=== PATIENT | female | born 1950 | race African-American/Black ===

== ENCOUNTER 2016-11-27 02:29 | Emergency (ER) | payer OTHER ==
[~2016-11-27] VITALS: Ht 162.6 cm; Wt 68.2 kg
[~2016-11-27 02:29] MED LIST: ALBU18HF2 IH; ALBU4TAB6 PO; FLUT1DIS INH; TIOT18CA3 INH
[2016-11-27 02:59] VITALS: BP 149/95
[2016-11-27] MEDS ORDERED: LORAZEPAM 0.5MG TABLET PO STA (03:17)
[2016-11-27] MEDS ORDERED: ALBUTEROL (0.083%) 2.5MG/3ML NEB HHN STA (03:17)
== END 2016-11-27 05:10 | disposition home or self-care (01) ==
LOC: ER 02:29
DX: J44.1 Chronic obstructive pulmonary disease with (acute) exacerbation (principal); F41.9 Anxiety disorder, unspecified; I10 Essential (primary) hypertension; Z88.8 Allergy status to other drugs, medicaments and biological substances; Z91.048 Other nonmedicinal substance allergy status
CPT/HCPCS: 99283; J7611; Z7610

== ENCOUNTER 2017-01-14 13:50 | Emergency (ER) | payer OTHER ==
[~2017-01-14] VITALS: Ht 160 cm; Wt 52.0 kg
[2017-01-14] MEDS ORDERED: DIPHENHYDRAMINE 25MG CAPSULE PO ONE (15:15)
[2017-01-14] MEDS ORDERED: METOCLOPRAMIDE HCL 5MG TABLET PO ONE (15:15)
[2017-01-14 15:37] LABS: BASOPHILS % 0.4 % (0.0-2.0); CHLORIDE 108 mEq/L (98-107); EOSINOPHILS % 0.7 % (0.0-5.0); HEMATOCRIT. 37.6 % (36.0-48.0); HEMOGLOBIN. 12.7 g/dL (12.0-16.0); LYMPHOCYTES % 30.4 % (20.0-50.0); MEAN CORPUSCULAR HEMOGLOBIN 31.3 pg (28.0-32.0); MEAN CORPUSCULAR VOLUME 92.4 fL (81.0-99.0); MEAN PLATELET VOLUME 8.1 fl (7.4-10.4); MONOCYTES % 7.4 % (2.0-8.0); NEUTROPHILS % 61.1 % (40.0-76.0); PLATELET 208 x1000/uL (130-400); RED BLOOD CELL COUNT 4.07 mill/uL (4.2-5.4); RED CELL DISTRIBUTION WIDTH 13.5 % (11.6-14.6)
[2017-01-14 15:42] LABS: CARBON DIOXIDE 27 mEq/L (21-32)
[2017-01-14] MEDS ORDERED: TETRACAINE 0.5% OPHTH DROPS 4ML BOTHEYE ONE (15:45)
[2017-01-14] MEDS ORDERED: FLUORESCEIN SODIUM 1MG/STRIP LEFTEYE ONE (16:15)
[2017-01-14 18:36] VITALS: BP 142/68
== END 2017-01-14 18:38 | disposition home or self-care (01) ==
LOC: ER 13:50
DX: R51 Headache (principal); Z98.42 Cataract extraction status, left eye; I10 Essential (primary) hypertension; J44.9 Chronic obstructive pulmonary disease, unspecified; Z88.3 Allergy status to other anti-infective agents; Z91.041 Radiographic dye allergy status
CPT/HCPCS: 36415; 70450; 80048; 85025; 99285; J8597; Q0163

== ENCOUNTER 2017-01-18 17:03 | Emergency (ER) | payer MEDICAID, OTHER ==
[~2017-01-18] VITALS: Ht 160 cm; Wt 52.0 kg
[2017-01-18] MEDS ORDERED: ASPI-1159 PO (17:15)
[2017-01-18] MEDS ORDERED: AMLO10TA80 PO (17:15)
[2017-01-18] MEDS ORDERED: ACETAMINOPHEN 325MG TABLET PO ONE (18:45)
[2017-01-18 19:33] VITALS: BP 146/79
== END 2017-01-18 20:05 | disposition home or self-care (01) ==
LOC: ER 17:03
DX: J44.1 Chronic obstructive pulmonary disease with (acute) exacerbation (principal); I10 Essential (primary) hypertension; H40.9 Unspecified glaucoma; Z87.891 Personal history of nicotine dependence; Z79.82 Long term (current) use of aspirin; Z88.1 Allergy status to other antibiotic agents; Z88.8 Allergy status to other drugs, medicaments and biological substances
CPT/HCPCS: 99284

== ENCOUNTER 2019-03-10 20:59 | Inpatient (IN) | payer MEDICAID, OTHER ==
[~2019-03-10] VITALS: Ht 162.6 cm; Wt 56.7 kg
[~2019-03-10 20:59] MED LIST changes: +AMLO10TA80 PO; +ASPI-1393 PO
[2019-03-10] MEDS ORDERED: PREDNISONE 20MG TABLET PO STA (21:07)
[2019-03-10] MEDS ORDERED: ALBUTEROL (0.083%) 2.5MG/3ML NEB HHN STA (21:07)
[2019-03-10] MEDS ORDERED: IPRATROPIUM BROMIDE (0.02%) 0.5MG/2.5ML NEB HHN STA (21:07)
[2019-03-10] MEDS ORDERED: ONDANSETRON HCL 4MG/2ML INJ IV STA (21:07)
[2019-03-10] MEDS ORDERED: CLONIDINE 0.2MG TABLET PO ONE (21:45)
[2019-03-10 21:57] LABS: BASOPHILS % 0.3 % (0.0-2.0); EOSINOPHILS % 1.3 % (0.0-5.0); HEMATOCRIT. 41.3 % (36.0-48.0); HEMOGLOBIN. 13.9 g/dL (12.0-16.0); LYMPHOCYTES % 18.7 % (20.0-50.0); MEAN CORPUSCULAR HEMOGLOBIN 31.5 pg (28.0-32.0); MEAN CORPUSCULAR VOLUME 93.4 fL (81.0-99.0); MEAN PLATELET VOLUME 8.7 fl (7.4-10.4); MONOCYTES % 7.9 % (2.0-8.0); NEUTROPHILS % 71.8 % (40.0-76.0); PLATELET 225 x1000/uL (130-400); RED BLOOD CELL COUNT 4.42 mill/uL (4.2-5.4)
[2019-03-10 21:59] LABS: CHLORIDE 110 mEq/L (98-107)
[2019-03-10] MEDS ORDERED: CEFTRIAXONE 1 G PREMIX 50 ML IV ONE (23:00)
[2019-03-10] MEDS ORDERED: SODIUM CHLORIDE 0.9% 1000ML BAG (SEPSIS BOLUS) IV ONE (23:00)
[2019-03-11 03:28] VITALS: BP 126/60
[2019-03-11] MEDS ORDERED: IPRATROPIUM/ALBUTEROL 0.5-3(2.5)MG/3ML NEB HHN PRN (04:30)
[2019-03-11] MEDS ORDERED: CEFTRIAXONE 1 G PREMIX 50 ML IV SCH (06:00)
[2019-03-11] MEDS: METHYLPREDNISOLONE SOD SUCC 40 MG/ML VIAL IV SCH ×2 (06:12→14:37)
[2019-03-11 06:31] VITALS: BP 126/60
[2019-03-11 06:59] VITALS: BP 126/60
[2019-03-11] MEDS: IPRATROPIUM/ALBUTEROL 0.5-3(2.5)MG/3ML NEB HHN SCH ×3 (08:17→16:46)
[2019-03-11] MEDS ORDERED: AZITHROMYCIN 250 MG TABLET PO SCH (09:00)
[2019-03-11 12:00] VITALS: BP 142/61
[2019-03-11 16:00] VITALS: BP 117/58
[2019-03-11 17:23] VITALS: BP 117/58
[2019-03-11] MEDS ORDERED: P20 MT (18:32)
[2019-03-11] MEDS ORDERED: AZIT250T12 MT (18:35)
== END 2019-03-11 18:40 | disposition home or self-care (01) | DRG 144 ==
LOC: ER 20:59 → EDBEDREQ 03-11 00:02 → EDBEDREQSVC 03-11 00:02 → EDBEDREQTM 03-11 00:02 → EDBEDREQSVC 03-11 00:25 → EDBEDREQ 03-11 00:25 → EDBEDREQDT 03-11 00:25 → ENRESERV 03-11 02:58 → 8WST 03-11 03:39
PROVIDERS: ADMIT Internal Medicine; ATTEND Internal Medicine
PROC: 5A09357 Assistance with Respiratory Ventilation, Less than 24 Consecutive Hours, Continuous Positive Airway Pressure (ICD-10-PCS; principal; 2019-03-11)
DX: J68.0 Bronchitis and pneumonitis due to chemicals, gases, fumes and vapors (principal); J96.00 Acute respiratory failure, unspecified whether with hypoxia or hypercapnia; E87.8 Other disorders of electrolyte and fluid balance, not elsewhere classified; I10 Essential (primary) hypertension; F14.90 Cocaine use, unspecified, uncomplicated; F17.210 Nicotine dependence, cigarettes, uncomplicated; Z88.2 Allergy status to sulfonamides; Z88.8 Allergy status to other drugs, medicaments and biological substances; Z88.6 Allergy status to analgesic agent; Z88.1 Allergy status to other antibiotic agents; Z91.041 Radiographic dye allergy status; Z79.899 Other long term (current) drug therapy; Z79.82 Long term (current) use of aspirin; Z71.6 Tobacco abuse counseling; Z71.51 Drug abuse counseling and surveillance of drug abuser
CPT/HCPCS: 36415; 71045; 83880; 84484; 93005; 94640; 94644; 94660; 99291; J0696; J2405; J2920; J7030; J7040; J7512; J7611; J7620

== ENCOUNTER 2019-04-29 12:52 | Emergency (ER) | payer OTHER ==
[~2019-04-29] VITALS: Ht 165.1 cm; Wt 50.0 kg
[~2019-04-29 12:52] MED LIST changes: +AZIT250T12 MT; +P20 MT
[2019-04-29] MEDS: IPRATROPIUM/ALBUTEROL 0.5-3(2.5)MG/3ML NEB HHN ONE (18:55)
[2019-04-29] MEDS: METHYLPREDNISOLONE SOD SUCC 125 MG/2 ML VIAL IV STA (18:56)
[2019-04-29] MEDS: PIPERACILLIN/TAZ 3.375G PREMIX 50 ML IV ONE (19:03)
[2019-04-29 19:09] LABS: BASOPHILS % 0.3 % (0.0-2.0); EOSINOPHILS % 0.9 % (0.0-5.0); HEMATOCRIT. 38.6 % (36.0-48.0); HEMOGLOBIN. 13.2 g/dL (12.0-16.0); LYMPHOCYTES % 30.3 % (20.0-50.0); MEAN CORPUSCULAR HEMOGLOBIN 31.8 pg (28.0-32.0); MEAN CORPUSCULAR VOLUME 93.2 fL (81.0-99.0); MEAN PLATELET VOLUME 8.1 fl (7.4-10.4); MONOCYTES % 8.1 % (2.0-8.0); NEUTROPHILS % 60.4 % (40.0-76.0); PLATELET 216 x1000/uL (130-400); RED BLOOD CELL COUNT 4.14 mill/uL (4.2-5.4); RED CELL DISTRIBUTION WIDTH 14.3 % (11.6-14.6)
[2019-04-29 19:10] LABS: *AMPHETAMINES SCREEN URINE NEGATIVE (NEGATIVE); *BARBITURATES SCREEN URINE NEGATIVE (NEGATIVE)
[2019-04-29 19:11] LABS: *BENZODIAZEPINES SCREEN URINE NEGATIVE (NEGATIVE); *COCAINE SCREEN URINE PRESUMTIVE POSITIVE (NEGATIVE); CANNABINOID URINE SCREEN PRESUMTIVE POSITIVE (NEGATIVE); METHADONE URINE SCREEN NEGATIVE (NEGATIVE); OPIATES URINE SCREEN PRESUMTIVE POSITIVE (NEGATIVE); PHENCYCLIDINE URINE SCREEN NEGATIVE (NEGATIVE)
[2019-04-29 19:12] LABS: BG BASE EXCESS 0.4 mmol/L (-2.0-2.0); BG CARBOXYHEMOGLOBIN 0.7 % (0.5-1.5); BG DEOXYHEMOGLOBIN 1.9 % (0.0-5.0); BG FRACTION INSPIRED OXYGEN 28; BG HCO3 ACT 25.9 mmol/L (22.0-26.0); BG METHEMOGLOBIN 0.3 % (0.0-1.5); BG OXYGEN SATURATION 98.1 % (92.0-98.5); BG OXYHEMOGLOBIN 97.1 % (94.0-97.0); BG PH 7.378 (7.350-7.450); BG PO2 126.8 mmHg (75.0-100.0); BG SAMPLE SITE RIGHT BRACHIAL; BG TOTAL HEMOGLOBIN 13.4 g/dL (12.0-18.0); BG VENT MODE NASAL CANNULA
[2019-04-29 19:15] LABS: CHLORIDE 111 mEq/L (98-107)
[2019-04-29 19:16] LABS: INR 0.9; PARTIAL THROMBOPLASTIN TIME 23.2 sec (23.4-31.0); PROTHROMBIN TIME 9.8 sec (9.6-11.0)
[2019-04-29 19:19] LABS: ETHANOL BLOOD < 10 mg/dL
[2019-04-29] MEDS: MAGNESIUM 2 G PREMIX 50 ML IV ONE (19:44)
[2019-04-30 00:43] VITALS: BP 104/61
== END 2019-04-30 01:27 | disposition short-term general hospital (02) ==
LOC: ER 12:52 → CANBEDREQ 04-30 02:51
DX: J44.1 Chronic obstructive pulmonary disease with (acute) exacerbation (principal); R06.02 Shortness of breath; F14.10 Cocaine abuse, uncomplicated; R09.02 Hypoxemia; I10 Essential (primary) hypertension; Z87.891 Personal history of nicotine dependence; Z79.82 Long term (current) use of aspirin; Z79.899 Other long term (current) drug therapy; Z88.2 Allergy status to sulfonamides; Z88.9 Allergy status to unspecified drugs, medicaments and biological substances; Z88.1 Allergy status to other antibiotic agents; Z91.09 Other allergy status, other than to drugs and biological substances; Z79.51 Long term (current) use of inhaled steroids; Z91.041 Radiographic dye allergy status; Z88.6 Allergy status to analgesic agent
CPT/HCPCS: 36415; 36600; 71045; 80053; 80305; 80320; 82375; 82805; 83605; 83690; 83880; 84484; 85025; 85610; 85730; 87040; 87086; 93005; 94640; 96365; 96368; 96375; 99285; J2543; J2930; J3475; J7620; Z7610; G0480

== ENCOUNTER 2019-06-21 11:04 | Emergency (ER) | payer OTHER ==
[~2019-06-21] VITALS: Ht 160 cm; Wt 47.0 kg
[~2019-06-21 11:04] MED LIST changes: -ASPI-1393 PO; +ASPI-1497 PO
[2019-06-21] MEDS ORDERED: ALBUTEROL (0.083%) 2.5MG/3ML NEB HHN STA (11:25)
[2019-06-21] MEDS ORDERED: IPRATROPIUM BROMIDE (0.02%) 0.5MG/2.5ML NEB HHN STA (11:25)
[2019-06-21] MEDS ORDERED: PREDNISONE 20MG TABLET PO ONE (11:30)
[2019-06-21 12:23] LABS: BASOPHILS % 0.3 % (0.0-2.0); EOSINOPHILS % 0.7 % (0.0-5.0); HEMATOCRIT. 40.1 % (36.0-48.0); HEMOGLOBIN. 13.5 g/dL (12.0-16.0); LYMPHOCYTES % 11.4 % (20.0-50.0); MEAN CORPUSCULAR HEMOGLOBIN 32.1 pg (28.0-32.0); MEAN CORPUSCULAR VOLUME 95.4 fL (81.0-99.0); MEAN PLATELET VOLUME 8.2 fl (7.4-10.4); MONOCYTES % 6.2 % (2.0-8.0); NEUTROPHILS % 81.4 % (40.0-76.0); PLATELET 200 x1000/uL (130-400)
[2019-06-21 12:30] LABS: CHLORIDE 107 mEq/L (98-107)
[2019-06-21] MEDS ORDERED: ALBUTEROL (0.5%) 2.5MG/0.5ML NEB HHN ONE (12:34)
[2019-06-21 14:00] VITALS: BP 121/78
== END 2019-06-21 14:14 | disposition home or self-care (01) ==
LOC: ER 11:04
DX: R06.02 Shortness of breath (principal); I10 Essential (primary) hypertension
CPT/HCPCS: 36415; 71045; 80053; 83880; 84484; 85025; 93005; 94640; 99285; J7512; J7610

== ENCOUNTER 2020-06-24 10:16 | Emergency (ER) | payer OTHER ==
[~2020-06-24] VITALS: Ht 162.6 cm; Wt 55.0 kg
[2020-06-24] MEDS ORDERED: ALBUTEROL (0.083%) 2.5MG/3ML NEB HHN STA (10:40)
[2020-06-24] MEDS ORDERED: METHYLPREDNISOLONE SOD SUCC 125 MG/2 ML VIAL IV STA (10:40)
[2020-06-24] MEDS ORDERED: ALBUTEROL (0.083%) 2.5MG/3ML NEB HHN ONE (11:00)
[2020-06-24] MEDS ORDERED: ALBUTEROL (0.083%) 2.5MG/3ML NEB ONE (11:20)
[2020-06-24 11:31] LABS: BASOPHILS % 0.1 % (0.0-2.0); EOSINOPHILS % 0.9 % (0.0-5.0); HEMATOCRIT. 46.3 % (36.0-48.0); LYMPHOCYTES % 15.4 % (20.0-50.0); MEAN CORPUSCULAR VOLUME 92.8 fL (81.0-99.0); MEAN PLATELET VOLUME 8.1 fl (7.4-10.4); NEUTROPHILS % 76.6 % (40.0-76.0); PLATELET 189 x1000/uL (130-400); RED BLOOD CELL COUNT 4.99 mill/uL (4.2-5.4); RED CELL DISTRIBUTION WIDTH 14.4 % (11.6-14.6)
[2020-06-24 11:39] LABS: CHLORIDE 108 mEq/L (98-107)
[2020-06-24] MEDS ORDERED: DOXY50CA2 MT (13:18)
[2020-06-24] MEDS ORDERED: P20 MT (13:24)
[2020-06-24] MEDS ORDERED: DOXYCYCLINE HYCLATE 100MG CAPSULE PO ONE (13:30)
[2020-06-24 13:52] VITALS: BP 128/67
== END 2020-06-24 13:53 | disposition home or self-care (01) ==
LOC: ER 10:24
DX: J44.1 Chronic obstructive pulmonary disease with (acute) exacerbation (principal); I10 Essential (primary) hypertension; Z88.8 Allergy status to other drugs, medicaments and biological substances; Z88.2 Allergy status to sulfonamides; Z88.6 Allergy status to analgesic agent; Z79.899 Other long term (current) drug therapy; Z79.82 Long term (current) use of aspirin
CPT/HCPCS: 36415; 71045; 80048; 83880; 84484; 85025; 93005; 94640; 96374; 99285; J2930; Z7610

== ENCOUNTER 2020-07-01 10:27 | Emergency (ER) | payer MEDICAID, OTHER ==
[~2020-07-01] VITALS: Ht 175.3 cm; Wt 68.0 kg
[~2020-07-01 10:27] MED LIST changes: +DOXY50CA2 MT
[2020-07-01] MEDS ORDERED: ALBUTEROL (0.083%) 2.5MG/3ML NEB HHN STA (10:39)
[2020-07-01] MEDS ORDERED: IPRATROPIUM BROMIDE (0.02%) 0.5MG/2.5ML NEB HHN STA (10:39)
[2020-07-01] MEDS ORDERED: METHYLPREDNISOLONE SOD SUCC 125 MG/2 ML VIAL IV STA (10:39)
[2020-07-01 11:08] LABS: BASOPHILS % 0.2 % (0.0-2.0); CHLORIDE 112 mEq/L (98-107); EOSINOPHILS % 0.9 % (0.0-5.0); HEMATOCRIT. 42.7 % (36.0-48.0); LYMPHOCYTES % 9.5 % (20.0-50.0); MEAN CORPUSCULAR HEMOGLOBIN 30.5 pg (28.0-32.0); MEAN CORPUSCULAR VOLUME 92.8 fL (81.0-99.0); MEAN PLATELET VOLUME 7.6 fl (7.4-10.4); MONOCYTES % 5.7 % (2.0-8.0); NEUTROPHILS % 83.7 % (40.0-76.0); PLATELET 202 x1000/uL (130-400); RED BLOOD CELL COUNT 4.61 mill/uL (4.2-5.4); RED CELL DISTRIBUTION WIDTH 14.6 % (11.6-14.6)
[2020-07-01 11:37] LABS: BG BASE EXCESS -0.4 mmol/L (-2.0-2.0); BG CARBOXYHEMOGLOBIN 0.2 % (0.5-1.5); BG DEOXYHEMOGLOBIN 0.4 % (0.0-5.0); BG FRACTION INSPIRED OXYGEN 75; BG HCO3 ACT 25.5 mmol/L (22.0-26.0); BG OXYGEN SATURATION 99.6 % (92.0-98.5); BG OXYHEMOGLOBIN 98.4 % (94.0-97.0); BG PH 7.361 (7.350-7.450); BG PO2 387.5 mmHg (75.0-100.0); BG SAMPLE SITE LEFT RADIAL; BG TOTAL HEMOGLOBIN 14.4 g/dL (12.0-18.0); BG TOTAL RESPIRATORY RATE 25 b/min; BG VENT MODE MASK - BIPAP
[2020-07-01 14:43] VITALS: BP 126/67
== END 2020-07-01 14:59 | disposition left against medical advice (07) ==
LOC: ER 10:37 → CANBEDREQ 16:04
DX: J44.1 Chronic obstructive pulmonary disease with (acute) exacerbation (principal); R06.03 Acute respiratory distress; Z20.822 Contact with and (suspected) exposure to COVID-19; I10 Essential (primary) hypertension; I49.1 Atrial premature depolarization; Z79.899 Other long term (current) drug therapy; Z88.1 Allergy status to other antibiotic agents; Z88.3 Allergy status to other anti-infective agents; Z88.6 Allergy status to analgesic agent; Z88.8 Allergy status to other drugs, medicaments and biological substances; Z79.82 Long term (current) use of aspirin; Z79.51 Long term (current) use of inhaled steroids; Z79.52 Long term (current) use of systemic steroids
CPT/HCPCS: 36415; 36600; 71045; 80053; 82375; 82805; 83880; 84484; 85025; 93005; 94640; 94660; 96374; 99285; C9803; J2930; U0003; Z7610

== ENCOUNTER 2020-12-07 14:29 | Emergency (ER) | payer MEDICAID, OTHER ==
[~2020-12-07] VITALS: Ht 160 cm; Wt 59.0 kg
[2020-12-07] MEDS ORDERED: METHYLPREDNISOLONE SOD SUCC 125 MG/2 ML VIAL IV STA (15:03)
[2020-12-07] MEDS: ALBUTEROL (0.083%) 2.5MG/3ML NEB HHN SCH ×3 (15:30→16:30)
[2020-12-07 16:42] LABS: HEMATOCRIT. 35.9 % (36.0-48.0); HEMOGLOBIN. 12.6 g/dL (12.0-16.0); MEAN CORPUSCULAR HEMOGLOBIN 31.8 pg (28.0-32.0); MEAN CORPUSCULAR VOLUME 90.4 fL (81.0-99.0); MEAN PLATELET VOLUME 7.8 fl (7.4-10.4); PLATELET 265 x1000/uL (130-400); RED BLOOD CELL COUNT 3.97 mill/uL (4.2-5.4); RED CELL DISTRIBUTION WIDTH 14.7 % (11.6-14.6)
[2020-12-07 16:49] LABS: CHLORIDE 110 mEq/L (98-107)
[2020-12-07 17:21] LABS: PLATELET ESTIMATE NORMAL
[2020-12-07] MEDS ORDERED: P20 MT (18:13)
[2020-12-07] MEDS ORDERED: DOXY100C2 MT (18:13)
[2020-12-07] MEDS ORDERED: DOXYCYCLINE HYCLATE 100MG CAPSULE PO NR (18:15)
[2020-12-07 18:47] VITALS: BP 148/80
== END 2020-12-07 18:50 | disposition home or self-care (01) ==
LOC: ER 14:29
DX: J45.901 Unspecified asthma with (acute) exacerbation (principal); I10 Essential (primary) hypertension; H40.9 Unspecified glaucoma; Z79.899 Other long term (current) drug therapy; Z79.51 Long term (current) use of inhaled steroids; Z88.6 Allergy status to analgesic agent; Z88.1 Allergy status to other antibiotic agents; Z88.3 Allergy status to other anti-infective agents; Z91.041 Radiographic dye allergy status; Z88.8 Allergy status to other drugs, medicaments and biological substances
CPT/HCPCS: 36415; 71045; 80053; 83880; 84484; 85025; 93005; 96374; 99285; J2930; Z7610